=== PATIENT | female | born 2000 | race Caucasian/White ===

== ENCOUNTER → 2021-03-27 | Outpatient (CLI) | payer BC ==
[~2021-03-27] VITALS: Ht 172.7 cm; Wt 63.6 kg
[~2021-03-27] MED LIST: GADOBUTROL 7.5 MMOL/7.5 ML (GADAVIST) VIAL IV ONE; IOHEXOL 300 MG/ML 50 ML (OMNIPAQUE 300) VIAL IV ONE
--- NOTE | 2021-03-27 14:50 | Diagnostic Imaging Report ---
INDICATION: Left shoulder pain. DETAILS OF THE PROCEDURE: The patient was brought to the procedure room and placed on the table in the supine position. The skin of the left shoulder was prepped and draped in the usual sterile fashion. A small amount of 1% lidocaine was utilized for local anesthesia. A 22-gauge needle was advanced into the left shoulder and placed with its tip at the rotator interval. A 15 mL solution of iodinated contrast, normal saline, and gadolinium was injected under fluoroscopic observation. The needle was withdrawn and hemostasis was obtained. A total of 14 seconds of fluoroscopic time was utilized. Two images were obtained. The patient tolerated the procedure well and was sent to MRI in satisfactory condition. IMPRESSION: Successful left shoulder injection of a gadolinium contrast solution, using fluoroscopy. Dictated by: Dictated on workstation # [id number]
--- NOTE | 2021-03-27 15:34 | Diagnostic Imaging Report ---
EXAMINATION: Magnetic resonance imaging of the left shoulder with intra-articular contrast. DATE: March 27, 2021. COMPARISON: Left shoulder arthrogram March 27, 2021. HISTORY: 20-year-old female, left shoulder pain. Injury playing soft ball. TECHNIQUE: Magnetic Resonance Imaging sequences were performed of the shoulder following the intrathecal administration of contrast. FINDINGS: ROTATOR CUFF, LIGAMENTS, TENDONS, AND MUSCLES: The supraspinatus, infraspinatus, teres minor, and subscapularis tendons and muscles are intact. There is normal rotator cuff muscle bulk and signal. LONG HEAD OF BICEPS: The biceps labral attachment and long head of the biceps tendon is intact. The long head of the biceps tendon is normally positioned within the bicipital groove. GLENOHUMERAL JOINT: The humeral head is well positioned relative to the glenoid. The labrum is intact. There is no identified paralabral cyst. The articular cartilage is grossly intact. There is no intra-articular body or prominent synovitis. Inferior glenohumeral ligament complex is intact. ACROMIOCLAVICULAR JOINT: The acromioclavicular joint is normally aligned. The coracoclavicular and coracoacromial ligaments are intact. There are no degenerative changes of the acromioclavicular joint. BONE: The bones all have normal configuration. The bone marrow signal is within normal limits. Specifically, negative for fracture, osteomyelitis, osteonecrosis, or marrow replacing process. BURSAE AND SOFT TISSUES: The bursae and soft tissue surrounding the shoulder are unremarkable. IMPRESSION: 1. Intact labrum and unremarkable additional glenohumeral joint assessment. 2. Intact rotator cuff and proximal long head of the biceps tendon. 3. Intact acromioclavicular joint. 4. No acute fracture, bone contusion or other bone marrow signal abnormality. 5. Unremarkable MRI arthrogram of the left shoulder. Dictated by: Dictated on workstation # [id number]
== END ==
LOC: RAD 13:19
PROVIDERS: ATTEND Physician Assistant Surgical
DX: M25.512 Pain in left shoulder (principal)
CPT/HCPCS: 23350; 73040; 73222